=== PATIENT | female | born 1970 | race Two or more races ===

== ENCOUNTER 2022-04-29 13:57 | Inpatient (IN) | payer MEDICAID ==
[~2022-04-29] VITALS: Ht 154.9 cm; Wt 154.6 kg
[2022-04-29 15:24] LABS: Basophils # (auto) 0 10 ^3/uL (0-0.2); Basophils % (auto) 0.4 % (0.0-2.0); Eosinophils # (auto) 0.3 10 ^3/uL (0-0.8); Eosinophils % (auto) 3.2 % (0.0-7.0); Hematocrit 32.1 % (36.0-46.0); Hemoglobin 9.9 g/dL (12.2-16.2); Lymphocytes # (auto) 2.2 10 ^3/uL (0.4-5.4); Lymphocytes % (auto) 21.4 % (10.0-50.0); Mean Corpuscular Hemoglobin 23.5 pg (28.0-32.0); Mean Corpuscular Hgb Conc. 30.8 g/dL (32.0-36.0); Mean Corpuscular Volume 76.2 fL (80.0-100.0); Monocytes # (auto) 0.5 10 ^3/uL (0-1.3); Monocytes % (auto) 4.7 % (0.0-12.0); Neutrophils # (auto) 7.2 10 ^3/uL (1.6-8.6); Neutrophils % (auto) 70.3 % (37.0-80.0); Red Blood Cells 4.21 10^6/uL (4.0-5.20); Red Cell Distribution Width 19.3 % (11.8-14.3); White Blood Cell 10.2 10^3/uL (4.4-10.8)
[2022-04-29 15:29] LABS: Urine Bacteria MANY /hpf (None Seen); Urine Blood Negative /uL (Negative); Urine Hyaline Cast MANY /lpf (0 - 2); Urine Mucus FEW (None Seen); Urine WBC 140 /hpf (0 - 5); Urine WBC Clumps PRESENT /hpf (None Seen)
[2022-04-29] MEDS ORDERED: SODIUM CHLORIDE 0.9% 1,000 ML IV ONE (15:30)
[2022-04-29 15:42] LABS: Albumin 2.9 g/dL (3.4-5.0); Magnesium 2.1 mg/dL (1.6-2.6); Potassium 4.6 mmol/L (3.5-5.1)
[2022-04-29 15:44] LABS: BUN/Creatinine Ratio 18.8
[2022-04-29 15:47] LABS: Bilirubin, Total 0.3 mg/dL (0.2-1.0); Total Protein 6.6 g/dL (6.4-8.2)
[2022-04-29] MEDS ORDERED: cefTRIAXone 1GM/50ML D5W 50 ML IV ONE (16:45)
[2022-04-29] MEDS ORDERED: SODIUM CHLORIDE 0.9% 1,000 ML IVB ONE (17:30)
[2022-04-29] MEDS ORDERED: CALCIUM CHL 100MG/ML 1,000 MG in D5W 5% 100 ML IV ONE (17:30)
[2022-04-29] MEDS ORDERED: dilTIAZem 25 MG/5 ML VIAL IV ONE (18:15)
[2022-04-29] MEDS ORDERED: ENOXAPARIN SOD 80 MG/0.8ML SYRINGE SC ONE (18:15)
[2022-04-29] MEDS ORDERED: InsuLIN REG 1unit/0.01ml Soln (100units/ml) IV ONE ×2 (18:30→18:45)
[2022-04-29] MEDS ORDERED: HYDROcodone-ACET 5/325MG TAB PO PRN (21:45)
[2022-04-29] MEDS ORDERED: ACETAMINOPHEN 325 MG TAB PO PRN (21:45)
[2022-04-29] MEDS ORDERED: ALBUMIN 25% 100 ML IV ONE (21:45)
[2022-04-29] MEDS ORDERED: ONDANSETRON HCL 4 MG/2 ML VIAL IV PRN (21:45)
[2022-04-29] MEDS ORDERED: DEXTROSE (50%) 50ML SYRG IV PRN (21:45)
[2022-04-29] MEDS ORDERED: DOCUSATE SOD 100 MG CAP PO PRN (21:45)
[2022-04-29] MEDS: SODIUM CHLORIDE 0.9% 1,000 ML IV SCH (22:19)
[2022-04-29] MEDS: HEPARIN SODIUM (PORCINE) 5000 UNITS/ML 1ML VIAL SC SCH (22:20)
[2022-04-29] MEDS: DIGOXIN (250MCG/ML) 2 ML AMPULE IV SCH (23:10)
[2022-04-29] MEDS ORDERED: NITROGLYCERIN 0.4 MG SL TAB SL PRN (23:30)
[2022-04-29] MEDS ORDERED: MORPHINE SULFATE INJ 2 MG/ml SYRG IV PRN (23:30)
[2022-04-30] MEDS ORDERED: SODIUM CHLORIDE 0.9% 500 ML IV ONE (00:15)
[2022-04-30] MEDS: ACCU-CHEK COMFORT CURVE STRIP VI SCH ×5 (00:20→23:54)
[2022-04-30] MEDS: InsuLIN REG 1unit/0.01ml Soln (100units/ml) SC SCH ×5 (00:22→23:58)
[2022-04-30 04:36] VITALS: BP 106/59
[2022-04-30] MEDS ORDERED: METF-370 PO (05:10)
[2022-04-30] MEDS ORDERED: ENAL2.5T7 PO (05:10)
[2022-04-30] MEDS ORDERED: ATO40T PO (05:10)
[2022-04-30] MEDS ORDERED: METO-158 PO (05:10)
[2022-04-30] MEDS ORDERED: TORS20TA20 PO (05:10)
[2022-04-30] MEDS ORDERED: AMLO-489 PO (05:10)
[2022-04-30] MEDS ORDERED: SPIR25TA8 PO (05:10)
[2022-04-30] MEDS ORDERED: RIV20T PO (05:10)
[2022-04-30] MEDS ORDERED: LEVO50TA7 PO (05:10)
[2022-04-30] MEDS: DIGOXIN (250MCG/ML) 2 ML AMPULE IV SCH ×2 (05:42→10:40)
[2022-04-30] MEDS: LEVOTHYROXINE SODIUM 50 MCG TAB PO SCH (06:40)
[2022-04-30] MEDS: SODIUM CHLORIDE 0.9% 1,000 ML IV SCH ×2 (07:00→22:14)
[2022-04-30 08:58] LABS: Potassium 4.7 mmol/L (3.5-5.1)
[2022-04-30 09:04] LABS: Basophils # (auto) 0 10 ^3/uL (0-0.2); Basophils % (auto) 0.6 % (0.0-2.0); Eosinophils # (auto) 0.3 10 ^3/uL (0-0.8); Monocytes # (auto) 0.4 10 ^3/uL (0-1.3); Neutrophils # (auto) 4.6 10 ^3/uL (1.6-8.6)
[2022-04-30 09:05] LABS: Albumin 2.7 g/dL (3.4-5.0); Bilirubin, Total 0.2 mg/dL (0.2-1.0); Calcium 8.3 mg/dL (8.5-10.1)
[2022-04-30 09:06] LABS: Eosinophils % (auto) 4.5 % (0.0-7.0); Hematocrit 29.5 % (36.0-46.0); Hemoglobin 9.2 g/dL (12.2-16.2); Lymphocytes # (auto) 1.6 10 ^3/uL (0.4-5.4); Lymphocytes % (auto) 22.8 % (10.0-50.0); Mean Corpuscular Hemoglobin 23.6 pg (28.0-32.0); Mean Corpuscular Hgb Conc. 31.1 g/dL (32.0-36.0); Mean Corpuscular Volume 75.8 fL (80.0-100.0); Neutrophils % (auto) 66.1 % (37.0-80.0); Nucleated Red Blood Cells % 0.1 %; Red Blood Cells 3.89 10^6/uL (4.0-5.20); Red Cell Distribution Width 19.5 % (11.8-14.3)
[2022-04-30 09:14] VITALS: BP 133/60
[2022-04-30] MEDS: cefTRIAXone 1GM/50ML D5W 50 ML IV SCH (10:39)
[2022-04-30] MEDS: HEPARIN SODIUM (PORCINE) 5000 UNITS/ML 1ML VIAL SC SCH (10:41)
[2022-04-30] MEDS ORDERED: METOPROLOL SUCCINATE XL 50 MG TAB PO ONE (11:00)
[2022-04-30] MEDS ORDERED: diphenhdrAMINE HCL 50 MG/1 ML VL IV PRN (12:30)
[2022-04-30 13:56] VITALS: BP 142/70
[2022-04-30] MEDS: APIXABAN 5 MG TAB PO SCH ×2 (15:11→21:43)
[2022-04-30] MEDS ORDERED: IOHEXOL 350 MG/ML 100ML IJ ONE (16:02)
[2022-04-30 17:17] VITALS: BP 160/87
[2022-04-30 21:57] VITALS: BP 159/63
[2022-05-01] MEDS: SODIUM CHLORIDE 0.9% 1,000 ML IV SCH (02:24)
[2022-05-01 05:00] VITALS: BP 153/69
[2022-05-01] MEDS: LEVOTHYROXINE SODIUM 50 MCG TAB PO SCH (06:21)
[2022-05-01] MEDS: ACCU-CHEK COMFORT CURVE STRIP VI SCH ×2 (06:21→12:00)
[2022-05-01] MEDS: InsuLIN REG 1unit/0.01ml Soln (100units/ml) SC SCH ×2 (06:22→12:10)
[2022-05-01 09:00] VITALS: BP 147/77
[2022-05-01] MEDS: cefTRIAXone 1GM/50ML D5W 50 ML IV SCH (09:02)
[2022-05-01] MEDS: APIXABAN 5 MG TAB PO SCH (09:02)
[2022-05-01] MEDS ORDERED: METOPROLOL SUCCINATE XL 50 MG TAB PO SCH (10:00)
[2022-05-01] MEDS ORDERED: DRONEDARONE HCL 400 MG TAB PO ONE (11:00)
[2022-05-01] MEDS ORDERED: ATO40T PO (11:01)
[2022-05-01] MEDS ORDERED: AMLO-489 PO (11:01)
[2022-05-01] MEDS ORDERED: ENAL10TA12 PO (11:01)
[2022-05-01] MEDS ORDERED: METF-372 PO (11:05)
[2022-05-01] MEDS ORDERED: RIV20T PO (11:06)
[2022-05-01] MEDS ORDERED: TORS20TA20 PO (11:06)
[2022-05-01] MEDS ORDERED: SPIR25TA8 PO (11:06)
[2022-05-01] MEDS ORDERED: DRON400T PO (11:07)
[2022-05-01 13:34] VITALS: BP 147/77
[2022-05-01] MEDS ORDERED: FERR-7 PO (14:46)
[2022-05-01] MEDS ORDERED: DRONEDARONE HCL 400 MG TAB PO SCH (22:00)
== END 2022-05-01 15:29 | disposition home or self-care (01) | DRG 201 ==
LOC: ER 13:57 → TELE 23:29 → TELE-WESTW 04-30 04:23
PROVIDERS: ADMIT Nurse Practitioner Family; ATTEND Internal Medicine Nephrology
DX: I48.0 Paroxysmal atrial fibrillation (principal); N17.9 Acute kidney failure, unspecified; E44.0 Moderate protein-calorie malnutrition; D63.8 Anemia in other chronic diseases classified elsewhere; E11.22 Type 2 diabetes mellitus with diabetic chronic kidney disease; I95.9 Hypotension, unspecified; E86.1 Hypovolemia; N30.00 Acute cystitis without hematuria; Z68.42 Body mass index [BMI] 45.0-49.9, adult; D50.9 Iron deficiency anemia, unspecified; E03.9 Hypothyroidism, unspecified; E11.65 Type 2 diabetes mellitus with hyperglycemia; E78.5 Hyperlipidemia, unspecified; E66.01 Morbid (severe) obesity due to excess calories; I12.9 Hypertensive chronic kidney disease with stage 1 through stage 4 chronic kidney disease, or unspecified chronic kidney disease; Z20.822 Contact with and (suspected) exposure to COVID-19; N18.9 Chronic kidney disease, unspecified; Z79.01 Long term (current) use of anticoagulants; Z87.01 Personal history of pneumonia (recurrent); Z90.710 Acquired absence of both cervix and uterus; Z86.16 Personal history of COVID-19
CPT/HCPCS: 36415; 71045; 71275; 80053; 81001; 82962; 83036; 83735; 83880; 84443; 84484; 85025; 85379; 87086; 93005; 93306; 93970; 96361; 96365; 99291; G0378; J0696; J1815; J7060; P9047